=== PATIENT | male | born 1985 | race Caucasian/White ===

== ENCOUNTER 2017-09-20 12:46 | Emergency (ER) | payer OTHER ==
[~2017-09-20] VITALS: Ht 180.3 cm; Wt 92.5 kg
[~2017-09-20 12:46] MED LIST: ACCUNEB SO1.25 MG/1; CIPROFLOXIN HC2.5 ML OPHTHALMIC; ENDOCET 5-3251 EACH PO; FLEXERIL PO; HYDROCODON-ACE1 EAC8 PO; LIORESAL 10 MG10 MG PO; LODINE XL400 MG PO; MEDROLDOSEPACK PO; NOHOMEMEDICATIONS; NORCO 5-325 TA1 EACH PO; OXYIR5 MG PO; PERCOCET 5-3251 EACH PO; ROBAXIN500 MG PO; ROXICODONE5 MG; SUBOXONE 2 MG-1 EACH; XANAX 0.5 MG0.5 MG PO; ZYPREXA 10 MG T10 MG PO
[2017-09-20 12:51] VITALS: BP 135/88
[2017-09-20] MEDS ORDERED: PENICILLIN V P500 MG PO (13:08)
== END 2017-09-20 13:39 | disposition home or self-care (01) ==
LOC: ER 12:46
DX: K02.9 Dental caries, unspecified (principal); F41.0 Panic disorder [episodic paroxysmal anxiety]; Z91.5 Personal history of self-harm; Z88.6 Allergy status to analgesic agent